=== PATIENT | female | born 1980 | race Caucasian/White ===

== ENCOUNTER 2023-07-30 14:26 | Emergency (ER) | payer BC ==
[~2023-07-30] VITALS: Ht 172.7 cm; Wt 118.4 kg
[2023-07-30] MEDS ORDERED: ACETAMINOPHEN 325 MG TABLET ONE (15:07)
[2023-07-30] MEDS ORDERED: ACETAMINOPHEN 325 MG TABLET PO ONE (15:30)
[2023-07-30] MEDS ORDERED: ONDANSETRON 4 MG TAB.RAPDIS ONE (16:55)
[2023-07-30] MEDS ORDERED: ONDANSETRON 4 MG TAB.RAPDIS SL ONE (17:00)
[2023-07-30 17:21] VITALS: BP 140/87; TEMP 98.4; O2SAT 98
== END 2023-07-30 17:10 | disposition home or self-care (01) ==
LOC: ER 14:35
DX: R03.0 Elevated blood-pressure reading, without diagnosis of hypertension (principal); I10 Essential (primary) hypertension; Z60.2 Problems related to living alone
CPT/HCPCS: 99284; 70450; Q0162